=== PATIENT | male | born 1975 | race Caucasian/White ===

== ENCOUNTER 2022-11-28 16:31 | Emergency (ER) | payer SELFPAY ==
[2022-11-28 16:46] VITALS: BP 129/76; PULSE 74; TEMP 36.5; O2SAT 96; BMI 23.0
--- NOTE | 2022-11-28 17:25 | USR_ITS ---
PROCEDURE INFORMATION: Exam: US Scrotum Exam date and time: 11/28/2022 5:43 PM Age: 47 years old Clinical indication: Right testicular pain and swelling for 1 day. TECHNIQUE: Imaging protocol: Real-time ultrasound of the scrotum and contents with color Doppler and image documentation. COMPARISON: No relevant prior studies available. FINDINGS: Right testicle: The right testicle is normal in size, 5.5 x 3.3 x 4.4 cm (42 mL). It has a normal homogeneous echotexture. There is no testicular mass. Normal vascularity is documented using color and duplex Doppler. Resistive index is 0.52. Left testicle: The left testicle is normal in size, 5.5 x 3.3 x 3.3 cm (31 mL). It has a normal homogeneous echotexture. There is no testicular mass. Normal vascularity is documented using color and duplex Doppler. Resistive index is 0.54. Right Epididymis: The right epididymis is enlarged and hypervascular, which indicates epididymitis (series 1, image 31). The right epididymal head is 2.0 x 1.8 x 1.5 cm. Left Epididymis: The left epididymal head is normal in size and vascularity. It is 0.9 x 0.8 x 1.1 cm. Scrotum: No varicocele. No scrotal fluid collections or wall thickening identified. Inguinal canal: Bilateral inguinal canals appear normal. Free fluid: Mild right hydrocele. No left hydrocele. US/US scrotum [id number] IMPRESSION: 1. Right epididymitis. 2. Mild right hydrocele. 3. The testicles are normal.
--- NOTE | 2022-11-28 18:24 | W.ED.MALEGU ---
HPI - Male Genitourinary General: Chief complaint: Urogenital-Male Stated complaint: right testicular swelling Time Seen by Provider: 11/28/22 18:23 Source: patient Mode of arrival: ambulatory Limitations: no limitations History of Present Illness: 47-year-old male states he has had right testicle pain over the last few days. States pain is sharp in nature denies any injuries he denies any difficulty urinating denies any burning with urination or penile discharge. Denies any fevers he rates his pain a 7 out of 10 currently Associated symptoms: Deny nausea or vomiting Review of Systems Const: Denies: fever(s), chills, body aches or change in appetite Eyes: Denies: blurry vision or eye discomfort ENMT: Denies: throat pain or dental pain Card: Denies: chest pain Resp: Denies: dyspnea GI: Denies: abdominal pain, nausea, vomiting or diarrhea : Reports: testicular pain Musc: Denies: neck pain or back pain Skin/Breast: Denies: rash Neuro: Denies: headache(s) Psych: Denies: depression Alex/Lymph: Denies: easy bruising All/Imm: Denies: urticaria PFSH ED PFSH: Medical History (Updated 11/28/22 @ 18:39 by Maria Heart MD) No pertinent past medical history Social History (Updated 11/28/22 @ 18:39 by Maria Heart MD) Substance/Drug Use: never Physical Exam Const: COMMON NORMALS: no acute distress and patient oriented x3 HENMT: COMMON NORMALS: normocephalic and atraumatic HEAD & SCALP: normocephalic and atraumatic Eye: COMMON NORMALS: conjunctivae normal CONJUNCTIVA: Yes conjunctivae normal Neck/C-Spine: COMMON NORMALS: full ROM Chest: COMMONS NORMALS: normal inspection of the chest Resp: COMMON NORMALS: normal respiratory effort Cardio: COMMON NORMALS: regular rate RATE: regular rate GI: INSPECTION: Yes normal to inspection : OTHER: Tenderness to right testicle Extremity: COMMON NORMALS: normal to inspection Neuro: COMMON NORMALS: patient oriented x3 Psych: COMMON NORMALS: mental status grossly normal Skin: COMMON NORMALS: no rashes or lesions noted GENERAL SKIN EXAM: no rashes or lesions noted Course Vital Signs: Vital signs: Vital Signs Temperature 97.7 F 11/28/22 16:46 Pulse Rate 64 11/28/22 18:26 Respiratory Rate 16 11/28/22 18:26 Blood Pressure 127/77 11/28/22 18:26 Pulse Oximetry 98 11/28/22 18:26 Oxygen Delivery Me thod 11/28/22 18:26 MDM - Male Medical Decision Making Patient presents here with right testicle pain he does have right epididymitis no signs of torsion we will place him on doxycycline he is to follow-up with urology he is return if worsening he understands agrees to plan. Lab Data Radiology Impressions Scrotum Ultrasound 11/28/22 17:25 IMPRESSION: 1. Right epididymitis. 2. Mild right hydrocele. 3. The testicles are normal. Discharge Plan Discharge Patient Disposition: Home Clinical Impression: Epididymitis Condition: Stable Prescriptions: New hydrocodone-acetaminophen 5-325 mg tablet 1 tab PO Q6H PRN (Reason: pain) Qty: 14 0RF doxycycline hyclate 100 mg tablet 100 mg PO BID 10 Days Qty: 20 0RF Discharge Orders: Discharge ED (Routine); Ordered 11/28/22 Ordered By: Maria Heart Referrals: Fercho Dukes MD [Physician] - 1-3 days Discharge Diet: Advance as tolerated Discharge Activity: Resume usual activity Patient Instructions: Epididymitis (ED), Opioid Safety Coding Level of Care Code ED Daycare Teacher for Anamaria Rai
[2022-11-28 18:26] VITALS: BP 127/77; PULSE 64; RESP 16; O2SAT 98
[2022-11-28] MEDS: cefTRIAXone 250 MG in water for injection-sterile 0.9 ML IM (18:35)
== END 2022-11-28 18:39 | disposition home or self-care (01) ==
PROVIDERS: Emergency Provider Emergency Medicine
DX: N45.1 Epididymitis (principal); N43.3 Hydrocele, unspecified
CPT/HCPCS: 76870; 99284; J0696

== ENCOUNTER → 2025-06-02 15:37 | Outpatient (BNVA) | payer SELFPAY | PROVIDERS: PCP Nurse Practitioner; Visit Provider Nurse Practitioner | DX: B35.1 Tinea unguium (principal) | CPT/HCPCS: 80053 ==